=== PATIENT | male | born 1935 | race African-American/Black ===

== ENCOUNTER → 2017-04-19 | Outpatient (CLI) | payer OTHER, MEDICARE ==
[~2017-04-19] MED LIST: ALLOPURINOL 10100 M1 PO; ALTACE10 M1 PO; ALUPENT IH; AMLODIPINE BESY10 MG PO; ASPIR 8181 M1 PO; ASPIRIN325; ATORVASTATIN CA40 MG PO; BREO ELLIPTA 11 EACH IH; CARVEDILOL12.5 MG PO; CLONAZEPAM 1 MG1 M1 PO; CYMBALTA60 MG PO; HYDRALAZINE 2525 MG PO; LEVAQUIN 500 M500 MG PO; LISINOPRIL20 MG PO; LOPRESSOR; NITROGLYCERIN0.4 MG SUBLING; OMEPRAZOLE 20 M20 M1 PO; PHENERGAN 25 MG25 M1 PO; PLAVIX 75 MG TA75 M1 PO; PREDNISONE 10 M10 MG PO; PROAIR HFA8.5 GM IH; REMERON15 MG PO; VITAMIN D 5050000 I1 PO; XANAX 0.25 MG0.25 MG PO; ZOCOR; ZOCOR 10 MG TAB10 MG PO; ZOFRAN 4 MG ORAL4 M1 DIS; ZOFRAN4 MG PO; ZPAK PO; [UNRECOGNIZED DRUG - OTHER] IH
== END ==
LOC: RAD 11:43
DX: I51.7 Cardiomegaly (principal)